=== PATIENT | female | born 1970 | race Hispanic/Latino ===

== ENCOUNTER 2021-09-21 18:42 | Emergency (ER) | payer OTHER, SELFPAY ==
[2021-09-21] MEDS ORDERED: LIDOCAINE 1% MPF 5 ML VIAL ONE (20:58)
[2021-09-21] MEDS ORDERED: LIDOCAINE 1% 20 ML MDV ONE (21:02)
[2021-09-21] MEDS ORDERED: BUPIVACAINE 0.5% PF 10 ML VIAL ONE (21:02)
[2021-09-21] MEDS ORDERED: CEFTRIAXONE 1000 MG/VIAL ONE ×2 (21:17→21:26)
[2021-09-21] MEDS ORDERED: MORPHINE 4 MG/ML SYR ONE (21:17)
[2021-09-21] MEDS ORDERED: ONDANSETRON 4 MG/2 ML VIAL ONE (21:17)
[2021-09-21] MEDS ORDERED: CLINDAMYCIN 900MG/D5W 900 MG/50 ML IVPB IV ONE (21:26)
[2021-09-21] MEDS ORDERED: NA CHLORIDE 0.9% 500 ML ONE (21:26)
[2021-09-21 21:30] LABS: Absolute Lymphocytes (CBC) 2.5 K/uL (0.7-4.9); Hematocrit 44.1 % (36.0-45.0); MPV 8.6 fL (7.6-11.3); RBC Red Blood Cell Count 5.17 M/uL (3.86-4.86)
[2021-09-21 21:37] LABS: Potassium 3.6 mmol/L (3.5-5.1)
--- NOTE | 2021-09-21 22:21 | EDPHYS ---
Physician Documentation [facility] Name: Marta Jeffries Age: 50 yrs Sex: Female : 1970 Arrival Date: 09/21/2021 Time: 18:45 Bed 13 Private MD: ED Physician Enrique Alba HPI: 09/21 20:25 This 50 yrs old Female presents to ER via Ambulatory with complaints of cp Bartholin's Cyst. 20:25 The patient presents with swelling of left side of vagina. cp 20:25 Onset: The symptoms/episode began/occurred 4 day(s) ago. cp 20:25 Associated signs and symptoms: Pertinent negatives: fever, vaginal bleeding, vaginal cp discharge, urinary symptoms. Severity of symptoms: in the emergency department the symptoms are unchanged. Patient reports she was referred to ED by primary care physician with concern for Bartholin cyst. Historical: - Allergies: 19:05 No Known Allergies; jh6 - PMHx: 19:05 Diabetes mellitus; Hypertensive disorder; 6 - Immunization history:: Client reports receiving the 2nd dose of the Covid vaccine. - Social history:: Smoking status: Patient denies any tobacco usage or history of. ROS: 20:30 Constitutional: Negative for fever. cp 20:30 : Positive for swelling and pain of left labia, Negative for urinary symptoms, vaginal bleeding, vaginal discharge. 20:30 Eyes: Negative for injury, pain, redness, and discharge. cp 20:30 ENT: Negative for sore throat. 20:30 Cardiovascular: Negative for chest pain. 20:30 Respiratory: Negative for shortness of breath. 20:30 Abdomen/GI: Negative for abdominal pain, nausea, vomiting, and diarrhea. 20:30 Neuro: Negative for altered mental status, headache, weakness. 20:30 All other systems are negative. Exam: 20:35 Constitutional: The patient appears in no acute distress, alert, awake, non-toxic, well cp developed, well nourished, obese. 20:35 Head/Face: Normocephalic, atraumatic. cp 20:35 Eyes: Periorbital structures: appear normal, Sclera: no appreciated abnormality, Lids and lashes: appear normal, bilaterally. 20:35 ENT: External ear(s): are unremarkable, Nose: is normal, Mouth: Lips: moist, Posterior pharynx: Airway: no evidence of obstruction, patent. 20:35 Chest/axilla: Inspection: normal. 20:35 Cardiovascular: Rate: tachycardic, Rhythm: regular. 20:35 Respiratory: the patient does not display signs of respiratory distress, Respirations: normal, no use of accessory muscles, no retractions, labored breathing, is not present. 20:35 Abdomen/GI: Exam negative for discomfort, distension, guarding, Inspection: obese 20:35 Back: pain, is absent. 20:35 : Pelvic Exam: External exam: left labia appears with mild swelling and erythema, no abscess noted, Speculum exam: no bleeding is noted, discharge, is not appreciated, the nurse was present for the exam. 20:35 Skin: no swelling, no erythema and no tenderness to palpation noted of perineum. cp Vital Signs: 19:02 BP 147 / 100; Pulse 106; Resp 18; Temp 97.2; Pulse Ox 97% ; Weight 118.84 kg; Height 5 jh6 ft. 3 in. (160.02 cm); Pain 7/10; 22:50 BP 138 / 90; Pulse 98; Resp 20; Temp 97.7; Pulse Ox 98% ; sf1 19:02 Body Mass Index 46.41 (118.84 kg, 160.02 cm) jh6 MDM: 20:03 Patient medically screened. cp 21:00 Differential diagnosis: abscess, Bartholin cyst, cellulitis, Freddy's gangrene, STD. cp 22:20 Data reviewed: vital signs, nurses notes, lab test result(s). cp 22:20 Counseling: I had a detailed discussion with the patient and/or guardian regarding: the cp historical points, exam findings, and any diagnostic results supporting the discharge/admit diagnosis, lab results, the need for outpatient follow up, an OB/Gyne specialist, to return to the emergency department if symptoms worsen or persist or if there are any questions or concerns that arise at home. Response to treatment: the patient's symptoms have mildly improved after treatment, and as a result, I will discharge patient. 09/21 20:17 Order name: CBC with Diff cp 09/21 20:17 Order name: BMP cp 09/21 20:18 Order name: CBC with Automated Diff; Complete Time: 22:11 EDMS 09/21 22:12 Interpretation: Normal except: RBC 5.17. cp 09/21 20:18 Order name: Basic Metabolic Panel; Complete Time: 22:11 EDMS 09/21 22:12 Interpretation: GLUC 205; GFR 82; Reviewed. cp 09/21 20:17 Order name: Pelvic Exam Setup; Complete Time: 21:12 cp 09/21 20:17 Order name: IV; Complete Time: 21:12 cp 09/21 20:17 Order name: I\T\D Setup; Complete Time: 21:12 cp 09/21 22:16 Order name: Wound dressing; Complete Time: 22:19 cp Administered Medications: 21:21 Drug: morphine 4 mg Route: IVP; Site: right antecubital; ph 21:21 Drug: Zofran (Ondansetron) 4 mg Route: IVP; Site: right antecubital; ph 21:21 Drug: Rocephin - (cefTRIAXone) 2 grams Route: IVPB; Infused Over: 30 mins; Site: right ph antecubital; 22:14 Follow up: IV Intake: 100ml sf1 21:37 Drug: NS 0.9% 500 ml Route: IV; Rate: bolus; Site: right antecubital; sf1 22:13 Follow up: IV Status: Completed infusion; IV Intake: 500ml sf1 22:13 Drug: Clindamycin 900 mg Route: IVPB; Infused Over: 30 mins; Site: right antecubital; sf1 22:50 Drug: Bactrim (trimethoprim-sulfamethoxazole) (160 mg-800 mg (DS) 2 tabs Route: PO; sf1 22:50 Drug: Doxycycline 200 mg Route: PO; sf1 Disposition: 09/22 21:23 Co-signature as Attending Physician, Enrique Alba MD. rn Disposition Summary: 09/21/21 22:20 Discharge Ordered Location: Home cp Problem: new cp Symptoms: have improved cp Condition: Stable cp Diagnosis - Cellulitis of other sites - left outer labia cp Followup: cp - With: Private Physician - When: 1 - 2 days - Reason: Recheck today's complaints Discharge Instructions: - Discharge Summary Sheet cp - Cellulitis, Adult cp Forms: - Medication Reconciliation Form cp - Thank You Letter cp - Antibiotic Education cp - Prescription Opioid Use cp Prescriptions: - Ibuprofen 800 mg Oral Tablet - take 1 tablet by ORAL route every 8 hours As needed take with food; 30 tablet; cp Refills: 0, Product Selection Permitted - Doxycycline Hyclate 100 mg Oral Tablet - take 1 tablet by ORAL route every 12 hours; 20 tablet; Refills: 0, Product cp Selection Permitted - Bactrim DS 800-160 mg Oral Tablet - take 1 tablet by ORAL route every 12 hours for 10 days; 20 tablet; Refills: 0, cp Product Selection Permitted Signatures: Dispatcher [employer] EDMS Enrique Alba MD MD rn Hall, Patricia, RN RN Aaron Fuentes PA PA cp Hastedt, Jennifer RN RN jh6 Iveth Paul RN RN sf1 Corrections: (The following items were deleted from the chart) 22: 21:27 : Positive for swelling and pain of left labia, Negative for urinary symptoms, cp vaginal bleeding, vaginal discharge, cp 22: 21:27 Constitutional: Negative for fever, cp cp
--- NOTE | 2021-09-21 22:21 | ER ---
Nurse's Notes [facility] Name: Marta Jeffries Age: 50 yrs Sex: Female : 1970 Arrival Date: 09/21/2021 Time: 18:45 Bed 13 Private MD: Diagnosis: Cellulitis of other sites-left outer labia Presentation: 09/21 19:02 Chief complaint: Patient states: abscess on lt side of vaginal wall x 4 days. no [facility] drainage was sent by pcp. hx of DM. Coronavirus screen: Vaccine status: Patient reports receiving the 2nd dose of the covid vaccine. Client denies travel out of the [place] in the last 14 days. Ebola Screen: Patient denies exposure to infectious person. Patient denies travel to an Ebola-affected area in the 21 days before illness onset. Initial Sepsis Screen: Does the patient meet any 2 criteria? No. Patient's initial sepsis screen is negative. Does the patient have a suspected source of infection? No. Patient's initial sepsis screen is negative. Risk Assessment: Do you want to hurt yourself or someone else? Patient reports no desire to harm self or others. Onset of symptoms was September 17, 2021. 19:02 Method Of Arrival: Ambulatory [facility] 19:02 Acuity: KATIANA 3 6 Triage Assessment: 19:05 General: Appears in no apparent distress. Behavior is calm, cooperative. Pain: [facility] Complains of pain in left labia majora and left labia minora. Historical: - Allergies: 19:05 No Known Allergies; [facility] - PMHx: 19:05 Diabetes mellitus; Hypertensive disorder; [facility] - Immunization history:: Client reports receiving the 2nd dose of the Covid vaccine. - Social history:: Smoking status: Patient denies any tobacco usage or history of. Screenin:51 Abuse screen: Denies threats or abuse. Nutritional screening: No deficits noted. sf1 Tuberculosis screening: No symptoms or risk factors identified. Fall Risk None identified. Assessment: 22:50 General: Appears in no apparent distress. uncomfortable, Behavior is appropriate for sf1 age. Pain:. Vital Signs: 19:02 BP 147 / 100; Pulse 106; Resp 18; Temp 97.2; Pulse Ox 97% ; Weight 118.84 kg; Height 5 [facility] ft. 3 in. (160.02 cm); Pain 7/10; 22:50 BP 138 / 90; Pulse 98; Resp 20; Temp 97.7; Pulse Ox 98% ; sf1 19:02 Body Mass Index 46.41 (118.84 kg, 160.02 cm) [facility] ED Course: 18:45 Patient arrived in ED. as 19:04 Triage completed. 6 19:05 Arm band placed on right wrist. [facility] 20:01 Aaron Schofield PA is PHCP. cp 20:01 Enrique Alba MD is Attending Physician. cp 20:45 Lynda Mcfarland RN is Primary Nurse. ph 21:00 Inserted saline lock: 20 gauge in right antecubital area, using aseptic technique. sf1 Blood collected. 21:12 BMP Sent. ph 21:12 CBC with Diff Sent. ph 21:12 CBC with Automated Diff Sent. ph 21:12 Basic Metabolic Panel Sent. ph 22:51 Patient has correct armband on for positive identification. sf1 22:51 No provider procedures requiring assistance completed. IV discontinued, intact, sf1 bleeding controlled, No redness/swelling at site. Pressure dressing applied. Administered Medications: 21:21 Drug: morphine 4 mg Route: IVP; Site: right antecubital; ph 21:21 Drug: Zofran (Ondansetron) 4 mg Route: IVP; Site: right antecubital; ph 21:21 Drug: Rocephin - (cefTRIAXone) 2 grams Route: IVPB; Infused Over: 30 mins; Site: right ph antecubital; 22:14 Follow up: IV Intake: 100ml sf1 21:37 Drug: NS 0.9% 500 ml Route: IV; Rate: bolus; Site: right antecubital; sf1 22:13 Follow up: IV Status: Completed infusion; IV Intake: 500ml sf1 22:13 Drug: Clindamycin 900 mg Route: IVPB; Infused Over: 30 mins; Site: right antecubital; sf1 22:50 Drug: Bactrim (trimethoprim-sulfamethoxazole) (160 mg-800 mg (DS) 2 tabs Route: PO; sf1 22:50 Drug: Doxycycline 200 mg Route: PO; sf1 Intake: 22:13 IV: 500ml; Total: 500ml. sf1 22:14 IV: 100ml; Total: 600ml. sf1 Outcome: 22:20 Discharge ordered by . cosme 22:53 Patient left the ED. sf1 Signatures: Jessica Pizarro Patricia, RN RN ph Aaron Schofield PA PA cp Hastedt, Jennifer, RN RN jh6 Iveth Paul RN RN sf1
[2021-09-21] MEDS ORDERED: DOXYCYCLINE 100 MG CAP PO ONE (22:32)
[2021-09-21] MEDS ORDERED: SMZ./TMP. 800/160 MG TABLET ONE (22:33)
[2021-09-22] VITALS: BP 138/90; TEMP 97.7; O2SAT 98
== END 2021-09-21 22:53 | disposition home or self-care (01) ==
LOC: ER 18:42
DX: L03.818 Cellulitis of other sites (principal); I10 Essential (primary) hypertension
CPT/HCPCS: 36415; 80048; 85025; 96361; 96374; 96375; 99283; J2405; J7040

== ENCOUNTER 2023-03-28 23:13 | Emergency (ER) | payer SELFPAY ==
[2023-03-29 00:22] LABS: Absolute Lymphocytes (CBC) 2.5 K/uL (0.7-4.9); Hematocrit 42.5 % (36.0-45.0); Lymphocytes % 26.3 % (15.3-44.8); MCV 84.3 fL (80-100); MPV 8.6 fL (7.6-11.3); Platelets 261 thou/uL (152-406); RBC Red Blood Cell Count 5.04 M/uL (3.86-4.86)
[2023-03-29 00:38] LABS: BUN Blood Urea Nitrogen 13 mg/dL (7-18); Bicarbonate 24 mEq/L (21-32); Glomerular Filtration Rate 117 ml/min (=/>90); Glucose Level 205 mg/dL (74-106); Potassium 3.1 mEq/L (3.5-5.1); Sodium Level 136 mEq/L (136-145)
[2023-03-29 00:40] LABS: Troponin High Sensitivity < 3.0 pg/mL (<58.9)
[2023-03-29] MEDS ORDERED: dexAMETHasone 10 MG/ML VIAL ONE (01:18)
[2023-03-29] MEDS ORDERED: KETOROLAC 30 MG/ML INJ ONE (01:19)
--- NOTE | 2023-03-29 02:00 | EDPHYS ---
Physician Documentation [facility] Name: Marta Jeffries Age: 52 yrs Sex: Female : 1970 Arrival Date: 03/28/2023 Time: 23:13 Bed 9 Private MD: ED Physician Aaron Banks HPI: 03/28 23:30 This 52 yrs old Female presents to ER via EMS with complaints of Pain All Over.cp 23:30 The patient or guardian complains of pain, that is chronic. The complaints affect the cp right shoulder and right upper arm. Context: resulted from a chronic condition, the patient has a history of degenerative joint disease. Onset: The symptoms/episode began/occurred became worse tonight. 23:30 Treatment prior to arrival includes: no previous treatment. Modifying factors: The cp symptoms are alleviated by nothing. the symptoms are aggravated by movement. Associated signs and symptoms: Pertinent positives: left side chest pain, left side neck pain, left side , Pertinent negatives: deformity, swelling, warmth, injury. Severity of symptoms: in the emergency department the symptoms are actually worse, markedly. Historical: - Allergies: 23:37 PENICILLINS; kl - PMHx: 23:38 NIDDM; Hypertensive disorder; Arthritis; kl - Immunization history:: Adult Immunizations up to date. - Social history:: Smoking status: Patient denies any tobacco usage or history of. ROS: 23:35 Constitutional: Negative for body aches, chills, fever, poor PO intake. cp 23:35 Eyes: Negative for injury, pain, redness, and discharge. cp 23:35 Constitutional: Positive for pain all over. 23:35 Neck: Positive for pain with movement, pain at rest, Negative for injury or acute deformity. 23:35 Cardiovascular: Positive for chest pain, Negative for edema, palpitations. 23:35 Respiratory: Positive for shortness of breath, Negative for cough, wheezing. 23:35 Abdomen/GI: Negative for vomiting, diarrhea, constipation. 23:35 Back: Positive for pain at rest, pain with movement. 23:35 MS/extremity: Positive for pain, of the left upper arm and left shoulder, Negative for injury or acute deformity, decreased range of motion, paresthesias. 23:35 Neuro: Negative for altered mental status, dizziness, syncope, weakness. 23:35 All other systems are negative. Exam: 23:40 Constitutional: The patient appears in no acute distress, alert, awake, cp non-diaphoretic, non-toxic, well developed, well nourished, uncomfortable. 23:40 Head/Face: Normocephalic, atraumatic. cp 23:40 Eyes: Periorbital structures: appear normal, Conjunctiva: normal, no exudate, no injection, Sclera: no appreciated abnormality, Lids and lashes: appear normal, bilaterally. 23:40 ENT: External ear(s): are unremarkable, Nose: is normal, Mouth: is normal, Posterior pharynx: is normal, airway is patent, no erythema, no exudate. 23:40 Neck: C-spine: vertebral tenderness, is not appreciated, crepitus, is not appreciated, ROM/movement: pain, that is severe, with any movement, limited range of motion, is not appreciated, nuchal rigidity, is not appreciated. 23:40 Chest/axilla: Inspection: normal, Palpation: crepitus, is not appreciated, tenderness, that is moderate, of the left clavicle and anterior aspect of left upper chest. 23:40 Cardiovascular: Rate: normal, Rhythm: regular, Pulses: Pulses are 2+ in left radial artery. Edema: is not appreciated, JVD: is not appreciated. 23:40 Respiratory: the patient does not display signs of respiratory distress, Respirations: normal, no use of accessory muscles, no retractions, labored breathing, is not present, Breath sounds: are clear throughout, no decreased breath sounds, no stridor, no wheezing. 23:40 Abdomen/GI: Inspection: abdomen appears normal, Palpation: abdomen is soft and non-tender, in all quadrants. 23:40 Back: pain, that is moderate, of the left trapezius, left scapular area and left subscapular area. 23:40 Musculoskeletal/extremity: Extremities: grossly normal except: noted in the left shoulder: pain, There is no evidence of decreased ROM, deformity, swelling, ROM: limited passive range of motion due to pain, in the left shoulder, the left shoulder Severe pain noted. 23:40 Skin: cellulitis, is not appreciated, no rash present. 23:40 Neuro: Orientation: to person, place \T\ time. Mentation: is normal, Cerebellar function: is grossly normal, Motor: moves all fours, strength is normal, Sensation: no obvious gross deficits. 23:40 Special observations: complaints out of proportion to exam. 03/29 00:25 ECG was reviewed by the Attending Physician. Vital Signs: 03/28 23:38 BP 143 / 79; Pulse 95; Resp 20; Temp 98.3(O); Pulse Ox 100% on R/A; Weight 116.12 kg kl (R); Height 5 ft. 3 in. ; Pain 10; 03/29 01:18 BP 101 / 58; Pulse 88; Resp 18; Pulse Ox 100% ; kl 02:24 BP 108 / 70; Pulse 80; Resp 15; Pulse Ox 99% on R/A; kl 03/28 23:38 Body Mass Index 45.35 (116.12 kg, 160.02 cm) 03/28 23:38 Pain Scale: Adult kl MDM: 03/28 23:25 Patient medically screened. 03/29 00:00 Differential diagnosis: dislocation, closed fracture, tendonitis. 02:00 Data reviewed: vital signs, nurses notes, lab test result(s), EKG, radiologic studies, cp plain films. 02:00 I considered the following discharge prescriptions or medication management in the emergency department Medications were administered in the Emergency Department. See MAR. Independent interpretation of the following test(s) in the Emergency Department X-Ray: My interpretation is . Counseling: I had a detailed discussion with the patient and/or guardian regarding the historical points, exam findings, and any diagnostic results supporting the discharge/admit diagnosis, lab results, radiology results, the need for outpatient follow up, for definitive care, a orthopedic surgeon, to return to the emergency department if symptoms worsen or persist or if there are any questions or concerns that arise at home. Response to treatment: the patient's symptoms have markedly improved after treatment, and as a result, I will discharge patient. 03/28 23:45 Order name: Basic Metabolic Panel; Complete Time: :25 03/29 01:25 Interpretation: Normal except: K 3.1; GLUC 205; CRE 0.46. 03/28 23:45 Order name: CBC with Diff; Complete Time: 01:25 03/29 01:25 Interpretation: Normal except: RBC 5.04. 03/28 23:45 Order name: D-Dimer; Complete Time: 01:25 03/28 23:45 Order name: Troponin HS; Complete Time: 01:25 cp 03/28 23:45 Order name: XRAY Chest (1 view) cp 03/28 23:45 Order name: XRAY Humerus LEFT cp 03/28 23:45 Order name: EKG; Complete Time: 23:46 cp 03/28 23:45 Order name: Cardiac monitoring cp 03/28 23:45 Order name: EKG - Nurse/Tech; Complete Time: 00:20 cp 03/28 23:45 Order name: IV Saline Lock; Complete Time: 00:11 cp 03/28 23:45 Order name: Labs collected and sent; Complete Time: 00:12 cp 03/28 23:45 Order name: O2 Per Protocol; Complete Time: 00:21 cp 03/28 23:45 Order name: O2 Sat Monitoring; Complete Time: 00:21 cp 03/29 01:19 Order name: Sling; Complete Time: 01:19 kl EC:25 Rate is 91 beats/min. Rhythm is regular. [place] interval is normal. QRS interval is cp prolonged at 104 msec. QT interval is normal. Interpreted by me. Reviewed by me. Administered Medications: 00:35 Drug: Ondansetron IVP 4 mg Route: IVP; Site: right antecubital; kl 00:49 Drug: morphine IVP or IV 4 mg Route: IVP; Infused Over: 4 mins; Site: right antecubital;kl 01:12 Drug: Decadron - Dexamethasone IVP 10 mg Route: IVP; Site: right antecubital; kl 01:17 Drug: Ketorolac IVP 15 mg Route: IVP; Site: right antecubital; kl 01:36 Drug: Potassium PO Effervescent Tablet 50 mEq Route: PO; kl Disposition Summary: 03/29/23 02:00 Discharge Ordered Location: Home cp Problem: new cp Symptoms: have improved cp Condition: Stable cp Diagnosis - Calcific tendinitis of left shoulder cp - Chest pain, unspecified cp - Dorsalgia, unspecified cp - Cervicalgia cp Followup: cp - With: Paulino Remy MD - When: 2 - 3 days - Reason: Recheck today's complaints Discharge Instructions: - Discharge Summary Sheet cp - Acute Back Pain, Adult cp - Nonspecific Chest Pain, Adult cp - Calcific Tendinitis cp - Neck Exercises cp Forms: - Medication Reconciliation Form cp - Thank You Letter cp - Antibiotic Education cp - Prescription Opioid Use cp - Patient Portal Instructions cp - Leadership Thank You Letter cp Prescriptions: - Cyclobenzaprine 10 mg Oral Tablet - take 1 tablet by ORAL route every 8 hours As needed; 30 tablet; Refills: 0, cp Product Selection Permitted - Diclofenac Sodium 75 mg Oral Tablet Sustained Release - take 1 tablet by ORAL route 2 times per day; 30 tablet; Refills: 0, Product cp Selection Permitted - Medrol (Clifford) 4 mg Oral Tablets, Dose Pack - take 1 tablet by ORAL route as directed - follow package instructions; 1 cp packet; Refills: 0, Product Selection Permitted Signatures: Dispatcher [employer] EDValeria Sr RN RN Aaron Harris PA PA cp Corrections: (The following items were deleted from the chart) 03/28 23:38 23:37 PMHx: diabetes mellitus; kl kl 23:38 23:37 PMHx: Hypertensive disorder; kl kl
--- NOTE | 2023-03-29 02:00 | ER ---
Nurse's Notes [facility] Name: Marta Jeffries Age: 52 yrs Sex: Female : 1970 Arrival Date: 03/28/2023 Time: 23:13 Bed 9 Private MD: Diagnosis: Calcific tendinitis of left shoulder;Chest pain, unspecified;Dorsalgia, unspecified;Cervicalgia Presentation: 03/28 23:25 Chief complaint: EMS states: arthritis pain 10/10 increased after shower. lg3 23:25 Method Of Arrival: EMS: [facility] 03/29 02:25 Coronavirus screen: Vaccine status: Patient reports receiving the 2nd dose of the covid kl vaccine. Ebola Screen: Patient negative for fever greater than or equal to 101.5 degrees Fahrenheit, and additional compatible Ebola Virus Disease symptoms. Initial Sepsis Screen: Does the patient meet any 2 criteria? No. Patient's initial sepsis screen is negative. Does the patient have a suspected source of infection? No. Patient's initial sepsis screen is negative. Risk Assessment: Do you want to hurt yourself or someone else? Patient reports no desire to harm self or others. 02:25 Acuity: KATIANA 3 kl Triage Assessment: 03/28 23:35 General: Appears distressed, uncomfortable, obese, Behavior is cooperative, anxious, kl crying. Pain: Complains of pain in anterior aspect of left shoulder and posterior aspect of left shoulder Pain radiates to elbow to side of head Pain currently is 10 out of 10 on a pain scale. Noted to be crying, grimacing, guarding, moaning, resistant to movement, pt reports has not take meloxicam for multiple days. EENT: No deficits noted. Neuro: No deficits noted. Cardiovascular: No deficits noted. Respiratory: No deficits noted. GI: No deficits noted. No signs and/or symptoms were reported involving the gastrointestinal system. : No deficits noted. No signs and/or symptoms were reported regarding the genitourinary system. Derm: No deficits noted. No signs and/or symptoms reported regarding the dermatologic system. Musculoskeletal: Reports pain in left shoulder. Historical: - Allergies: 23:37 PENICILLINS; kl - PMHx: 23:38 NIDDM; Hypertensive disorder; Arthritis; kl - Immunization history:: Adult Immunizations up to date. - Social history:: Smoking status: Patient denies any tobacco usage or history of. Screenin/05 01:18 [facility] ED Fall Risk Assessment (Adult) History of falling in the last 3 months, including since admission No falls in past 3 months (0 pts) Confusion or Disorientation No (0 pts) Intoxicated or Sedated No (0 pts) Impaired Gait Yes (1 pt) Mobility Assist Device Used Yes (1 pt) Altered Elimination No (0 pt) Score/Fall Risk Level 0 - 2 = Low Risk Oriented to surroundings, Maintained a safe environment. Abuse screen: Denies threats or abuse. Nutritional screening: No deficits noted. Tuberculosis screening: No symptoms or risk factors identified. Assessment: 01:18 Reassessment: Patient states symptoms have improved. 02:24 Reassessment: Patient states feeling better. Patient states symptoms have improved. Vital Signs: 03/28 23:38 BP 143 / 79; Pulse 95; Resp 20; Temp 98.3(O); Pulse Ox 100% on R/A; Weight 116.12 kg (R); Height 5 ft. 3 in. ; Pain 10/10; 03/29 01:18 BP 101 / 58; Pulse 88; Resp 18; Pulse Ox 100% ; kl 02:24 BP 108 / 70; Pulse 80; Resp 15; Pulse Ox 99% on R/A; kl 03/28 23:38 Body Mass Index 45.35 (116.12 kg, 160.02 cm) 03/28 23:38 Pain Scale: Adult ED Course: 03/28 23:19 Patient arrived in ED. mr 23:25 Aaron Schofield PA is PHCP. cp 23:25 Aaron Banks MD is Attending Physician. cp 03/29 00:12 Basic Metabolic Panel Sent. rv1 00:12 CBC with Diff Sent. rv1 00:12 D-Dimer Sent. rv1 00:12 Troponin HS Sent. rv1 00:12 Inserted saline lock: 20 gauge in right ,using aseptic technique. Upper outer arm Blood rv1 collected. 00:44 XRAY Chest (1 view) In Process Unspecified. EDMS 00:44 XRAY Humerus LEFT In Process Unspecified. EDMS 01:18 Patient has correct armband on for positive identification. kl 01:19 Shoulder immobilizer applied on left shoulder. kl 01:59 Paulino Remy MD is Referral Physician. cp 02:25 Triage completed. kl 02:25 No provider procedures requiring assistance completed. IV discontinued, intact, kl bleeding controlled, No redness/swelling at site. Pressure dressing applied. Administered Medications: 00:35 Drug: Ondansetron IVP 4 mg Route: IVP; Site: right antecubital; kl 00:49 Drug: morphine IVP or IV 4 mg Route: IVP; Infused Over: 4 mins; Site: right antecubital;kl 01:12 Drug: Decadron - Dexamethasone IVP 10 mg Route: IVP; Site: right antecubital; kl 01:17 Drug: Ketorolac IVP 15 mg Route: IVP; Site: right antecubital; kl 01:36 Drug: Potassium PO Effervescent Tablet 50 mEq Route: PO; kl Outcome: 02:00 Discharge ordered by MD. cp 02:25 Discharged to home via wheelchair, with family. kl 02:25 Condition: stable 02:25 Condition: improved 02:25 Discharge instructions given to patient, family, Instructed on discharge instructions, follow up and referral plans. medication usage, Demonstrated understanding of instructions, follow-up care, medications, Prescriptions given X 3. 02:25 Patient left the ED. kl Signatures: Dispatcher [employer] EDMS Valeria Sanchez RN RN kl Rivera, Mary mr Page, Corey, PA PA cp Gibson, Lacie, RN RN 3 Nandini Urbano rv1 Corrections: (The following items were deleted from the chart) 03/28 23:38 23:37 PMHx: diabetes mellitus; kl kl 23:38 23:37 PMHx: Hypertensive disorder; kl kl
[2023-03-29 02:51] VITALS: TEMP 98.3
[2023-03-29 02:57] VITALS: BP 108/70; O2SAT 99
--- NOTE | 2023-03-29 16:44 | EKG ---
Test Date: 2023-03-29 Test Time: 00:18:45 [employer] Supervisor: RV MEASUREMENT RESULTS: Intervals: Rate: 91 DC: 142 QRSD: 104 QT: 402 QTc: 494 Baxter: P: 55 DC: 142 QRS: 3 T: 59 INTERPRETIVE STATEMENTS: Normal sinus rhythm Prolonged QT Abnormal ECG No previous ECG available for comparison Electronically Signed On 03-29-23 16:42:16 CDT by Porter Julio
== END 2023-03-29 02:25 | disposition home or self-care (01) ==
LOC: ER 23:13
DX: M75.32 Calcific tendinitis of left shoulder (principal); R07.9 Chest pain, unspecified; M54.9 Dorsalgia, unspecified; M54.2 Cervicalgia; E11.9 Type 2 diabetes mellitus without complications; I10 Essential (primary) hypertension; Z88.0 Allergy status to penicillin
CPT/HCPCS: 36415; 71045; 80048; 84484; 85025; 85379; 93005; 96374; 96375; 99285; J1100